=== PATIENT | female | born 1985 | race Caucasian/White ===

== ENCOUNTER 2019-03-02 16:39 | Emergency (ER) | payer OTHER ==
[2019-03-02 17:00] VITALS: BP 121/64
--- NOTE | 2019-03-02 17:16 | ED ---
Skin Complaint - HPI Summary HPI Summary: 33 yr old female with the complaint of itching skin. Onset of symptoms was two weeks ago, first on her left side of neck, and now on the arms and trunk down to the wasteline. She is itching a lot, and has developed scabs. She has no other complaints. - History of Current Complaint Chief Complaint: UCRash Time Seen by Provider: 03/02/19 17:04 Stated Complaint: SKIN CONCERN Hx Last Menstrual Period: 02/16/19 Pain Intensity: 0 - Allergy/Home Medications Allergies/Adverse Reactions: Allergies Allergy/AdvReac Type Severity Reaction Status Date / Time No Known Allergies Allergy Verified 03/02/19 17:01 PMH/Surg Hx/FS Hx/Imm Hx Endocrine/Hematology History: Denies: Hx Diabetes, Hx Thyroid Disease Cardiovascular History: Denies: Hx Hypertension Respiratory History: Denies: Hx Asthma, Hx Chronic Obstructive Pulmonary Disease (COPD) GI History: Denies: Hx Ulcer Psychiatric History: Reports: Hx Anxiety Infectious Disease History: No Infectious Disease History: Denies: Hx Hepatitis, Hx Human Immunodeficiency Virus (HIV), History Other Infectious Disease, Traveled Outside the in Last 30 Days - Family History Known Family History: Positive: None - Social History Occupation: Employed Full-time Alcohol Use: Weekly Alcohol Amount: once a week Substance Use Type: Reports: None Smoking Status (MU): Light Every Day Tobacco Smoker Type: Cigarettes Amount Used/How Often: down to 5 cigs per day Length of Time of Smoking/Using Tobacco: 12 years Have You Smoked in the Last Year: Yes Review of Systems Positive: Rash, Other - itching All Other Systems Reviewed And Are Negative: Yes Physical Exam Triage Information Reviewed: Yes Vital Signs On Initial Exam: Initial Vitals Temp Pulse Resp BP Pulse Ox 98.7 F 99 16 121/64 100 03/02/19 16:57 03/02/19 16:57 03/02/19 16:57 03/02/19 16:57 03/02/19 16:57 Vital Signs Reviewed: Yes Appearance: Positive: Well-Appearing, No Pain Distress Skin: Positive: Warm, [place] Tracts, Other - scabs and tracts consitstent with scabies on the neck, trunk and arms. Eyes: Positive: EOMI ENT: Positive: Normal ENT inspection Neck: Positive: Nontender Respiratory/Lung Sounds: Positive: Clear to Auscultation, Breath Sounds Present Cardiovascular: Positive: RRR. Negative: Murmur Abdomen Description: Negative: Distended Musculoskeletal: Positive: Strength/ROM Intact Neurological: Positive: Sensory/Motor Intact, Alert, Oriented to Person Place, Time, CN Intact II-III Psychiatric: Positive: Normal - [place] Coma Scale Best Eye Response: 4 - Spontaneous Best Motor Response: 6 - Obeys Commands Best Verbal Response: 5 - Oriented Coma Scale Total: 15 Diagnostics - Vital Signs Vital Signs Temp Pulse Resp BP Pulse Ox 03/02/19 16:57 98.7 F 99 16 121/64 100 - Laboratory Lab Statement: Any lab studies that have been ordered have been reviewed, and results considered in the medical decision making process. Course/Dx - Course Course Of Treatment: 33 yr old with scabies. Rx elimite cream. - Diagnoses Provider Diagnoses: Scabies Discharge - Sign-Out/Discharge Documenting (check all that apply): Patient Departure All imaging exams completed and their final reports reviewed: No Studies - Discharge Plan Condition: Good Disposition: HOME Prescriptions: Permethrin 5% CREAM* 1 applic TOPICAL SEE INSTRUCTIONS #60 gm Patient Education Materials: Scabies (ED) Referrals: Kimi SERNA,Duran Urbina [Primary Care Provider] - 2 Days - Billing Disposition and Condition Condition: GOOD Disposition: Home
== END 2019-03-02 17:23 | disposition home or self-care (01) ==
LOC: UCCORT 16:39
DX: B86 Scabies (principal); F17.210 Nicotine dependence, cigarettes, uncomplicated; Z86.69 Personal history of other diseases of the nervous system and sense organs
CPT/HCPCS: 36415; 86703; 99202; G0463

== ENCOUNTER 2019-03-12 15:06 | Emergency (ER) | payer OTHER ==
[2019-03-12 15:41] VITALS: BP 118/68
--- NOTE | 2019-03-12 16:50 | UC ---
Skin Complaint HPI - HPI Summary HPI Summary: Patient has scabies several weeks ago and other family members were not treated. She was treated and it improved and went away and then it came back. - History of Current Complaint Chief Complaint: UCSkin Time Seen by Provider: 03/12/19 15:35 Stated Complaint: SKIN CONCERN Hx Obtained From: Patient Hx Last Menstrual Period: 03/11/19 ?: No Onset/Duration: Gradual Onset Skin Exposure Onset/Duration: Weeks Ago Timing: Constant Onset Severity: Mild Current Severity: Mild Pain Intensity: 0 Pain Scale Used: 0-10 Numeric Location: Diffuse - Areas on abdomen and arms. Character: Pruritus Aggravating Factor(s): Nothing Alleviating Factor(s): Nothing Associated Signs & Symptoms: Positive: Negative - Allergy/Home Medications Allergies/Adverse Reactions: Allergies Allergy/AdvReac Type Severity Reaction Status Date / Time No Known Allergies Allergy Verified 03/12/19 15:41 PMH/Surg Hx/FS Hx/Imm Hx Previously Healthy: Yes - Surgical History Surgical History: None - Family History Known Family History: Positive: None - Social History Alcohol Use: None Alcohol Amount: denies Substance Use Type: None Smoking Status (MU): Light Every Day Tobacco Smoker Type: Cigarettes Amount Used/How Often: 1/2 ppd Length of Time of Smoking/Using Tobacco: 12 years Have You Smoked in the Last Year: Yes Review of Systems All Other Systems Reviewed And Are Negative: Yes Skin: Positive: Rash - Rash on abdomen and arms. Is Patient Immunocompromised?: No Physical Exam Triage Information Reviewed: Yes Appearance: Well-Appearing, No Pain Distress, Well-Nourished Vital Signs: Initial Vital Signs Temp 98.9 F 03/12/19 15:38 Pulse 95 03/12/19 15:38 Resp 16 03/12/19 15:38 BP 118/68 03/12/19 15:38 Pulse Ox 99 03/12/19 15:38 Vital Signs Reviewed: Yes Skin: Positive: Rashes - She has several areas on her abdomen and her arms which could be consistent with scabies. Course/Dx - Course Course Of Treatment: Patient is comfortable here and good to treat her with Elimite cream as well as the entire family. - Diagnoses Provider Diagnosis: Scabies Discharge - Sign-Out/Discharge Documenting (check all that apply): Patient Departure All imaging exams completed and their final reports reviewed: No Studies - Discharge Plan Condition: Fair Disposition: HOME Prescriptions: Permethrin [Elimite] 60 gm TP ONCE #1 tube Patient Education Materials: Scabies (ED) Referrals: Kimi SERNA,Duran Urbina [Primary Care Provider] - Additional Instructions: Launder all bedding and clothing on hot, follow-up with your primary care provider in one week if no improvement. - Billing Disposition and Condition Condition: FAIR Disposition: Home
== END 2019-03-12 16:17 | disposition home or self-care (01) ==
LOC: UCCORT 15:06
DX: B86 Scabies (principal); F17.210 Nicotine dependence, cigarettes, uncomplicated
CPT/HCPCS: 99212; G0463